=== PATIENT | male | born 1950 | race African-American/Black ===

== ENCOUNTER 2017-02-19 12:04 | Emergency (ER) | payer MEDICAID, MEDICARE, OTHER ==
[~2017-02-19] VITALS: Ht 182.9 cm; Wt 93.4 kg
[~2017-02-19 12:04] MED LIST: ADVAIR 250-501 EACH; ASPIRIN EC81 MG PO; ATORVASTATIN CA40 MG ORAL; AZITHROMYCIN250 MG ORAL; CARISOPRODOL350 MG ORAL; ENALAPRIL MALEA10 MG ORAL; GABAPENTIN300 MG ORAL; GLUCOTROL5 MG ORAL; HYDROCODON-ACE1 EA13 ORAL; IBUPROFEN600 MG ORAL; KENALOG 0.1% CR15 GM; LIPITOR80 MG ORAL; METFORMIN HCL500 M1 ORAL; MONTELUKAST SOD10 MG ORAL; NASONEX17 GM NASAL; OMEPRAZOLE20 M2; PROAIR HFA8.5 GM INH; TRAMADOL HCL50 MG ORAL; VENTOLIN HFA18 GM INH
[2017-02-19 12:19] VITALS: BP 120/73
[2017-02-19] MEDS ORDERED: ANUSOL-HC25 MG RECTAL (12:33)
[2017-02-19] MEDS ORDERED: COLACE100 MG ORAL (12:33)
--- NOTE | 2017-02-20 07:07 | Emergency Room Report ---
History of Present Illness General Chief Complaint: Pain Source: Patient Present Illness HPI 67-year-old male presenting with rectal pain for one month. Patient states he had a colonoscopy about a month ago, was told that he had some polyps that were removed. Patient states that he had some bleeding right after the colonoscopy but stopped after a few days. Now complaining of burning rectal pain, worse with defecation, comes and goes. Denies any fever or chills. Denies any swelling. Denies any diarrhea. Complains also of constant constipation, with very hard stool Allergies: Coded Allergies: HALOPERIDOL (Verified Allergy, Severe, Shortness of Breath, 03/18/14) THIORIDAZINE (Verified Allergy, Severe, Shortness of Breath, 03/18/14) Patient History Past Medical History: see triage record Past Surgical History: none Pertinent Family History: none Reviewed Nursing Documentation: PMH: Agreed, PSxH: Agreed Nursing Documentation-PMH Past Medical History: No History, Except For Hx Cardiac Problems: Yes Hx Hypertension: Yes Hx Asthma: Yes Hx Diabetes: Yes Hx Cancer: No Hx Gastrointestinal Problems: No Hx Neurological Problems: No Review of Systems All Other Systems: negative except mentioned in HPI Physical Exam Vital Signs Date Time Temp Pulse Resp B/P (MAP) Pulse Ox O2 Delivery O2 Flow Rate FiO2 02/19/17 12:09 98.2 90 20 120/73 97 Room Air Sp02 EP Interpretation: reviewed, normal General Appearance: normal inspection, well appearing, no apparent distress, alert, GCS 15, non-toxic Head: normocephalic, atraumatic Eyes: bilateral eye normal inspection, bilateral eye PERRL, bilateral eye EOMI ENT: normal ENT inspection, normal pharynx, normal voice, moist mucus membranes Neck: normal inspection, full range of motion, supple Respiratory: normal inspection, lungs clear, normal breath sounds, no respiratory distress, no retraction, no wheezing, speaking full sentences, chest symmetrical Cardiovascular #1: normal inspection, regular rate, rhythm, no edema, normal capillary refill Cardiovascular #2: 2+ radial (R), 2+ radial (L) Gastrointestinal: normal inspection, non tender, soft, non-distended, no guarding Rectal: other - No anal fissures, no rectal abscess use, no external hemorrhoids, tender to palpation in the rectum, possible palpation of the internal hemorrhoids, tender to palpation, no blood Genitourinary: no CVA tenderness Musculoskeletal: normal inspection, back normal, normal range of motion, non- tender Neurologic: normal inspection, alert, oriented x3, responsive, motor strength/ tone normal, sensory intact, normal gait, speech normal Psychiatric: normal inspection, judgement/insight normal, memory normal Skin: normal inspection, normal color, no rash, warm/dry, well hydrated, normal turgor Medical Decision Making Diagnostic Impression: Primary Impression: Hemorrhoids Additional Impression: Rectal or anal pain ER Course 67-year-old male with rectal pain for one month DDX: Per physical exam not likely to be an abscess, anal tear or fissure, likely to be an internal hemorrhoids Plan: No intervention in the emergency room ER course: Patient has remained stable during ED stay. Disposition: Patient is to be discharged to home. Prescriptions given are Colace, Anusol Patient is instructed to follow up with their primary care doctor within 5 days. Patient is instructed to follow up with gastroenterology in one week Strict return precautions discussed with patient such as fever, chills, worsening/severe pain, black or bloody stools Please note that this Emergency Department Report was dictated using [employer] estate photographer technology software, occasionally this can lead to erroneous entry secondary to interpretation by the dictation equipment Last Vital Signs Date Time Temp Pulse Resp B/P (MAP) Pulse Ox O2 Delivery O2 Flow Rate FiO2 02/19/17 12:45 98.2 90 20 120/73 97 Room Air Disposition: HOME, SELF-CARE Condition: Stable Scripts Docusate Sodium* (COLACE*) 100 Mg Capsule 100 MG ORAL THREE TIMES A DAY for 7 Days, #21 CAP 0 Refills Prov: Chapis Moreno M.D. 02/19/17 Hydrocortisone Acetate* (ANUSOL-HC*) 25 Mg Supp.rect 1 SUPP RECTAL TWICE A DAY for 5 Days, #10 SUPP 0 Refills Prov: Chapis Moreno M.D. 02/19/17 Referrals: NOT CHOSEN IPA/,REFERRING (PCP) Patient Instructions: Hemorrhoids, [id number] Additional Instructions: Please followup with your lithopress operator in one week without fail Chapis Moreno M.D. Feb 20, 2017 07:07
== END 2017-02-19 12:52 | disposition home or self-care (01) ==
LOC: EMR 12:33
DX: K64.9 Unspecified hemorrhoids (principal); K62.89 Other specified diseases of anus and rectum; Z88.5 Allergy status to narcotic agent; Z86.79 Personal history of other diseases of the circulatory system; I10 Essential (primary) hypertension; J45.909 Unspecified asthma, uncomplicated; E11.9 Type 2 diabetes mellitus without complications
CPT/HCPCS: 99283

== ENCOUNTER 2018-06-24 10:57 | Emergency (ER) | payer MEDICARE, OTHER ==
[~2018-06-24] VITALS: Ht 177.8 cm; Wt 90.7 kg
[~2018-06-24 10:57] MED LIST changes: +ANUSOL-HC25 MG RECTAL; +COLACE100 MG ORAL; +LIDOCAINE700 M1 TP; +ROBAXIN500 MG PO
--- NOTE | 2018-06-24 11:10 | NUR ---
ED Nurse Note: Patient walked into ED for pre-op blood work and ekg patient reports surgery scheduled on 06/30/18 at other hospital and his PCP office is closed, for MD on a vacation.
--- NOTE | 2018-06-24 12:26 | NUR ---
ED Nurse Note: blood sent down
[2018-06-24 12:34] LABS: BASOPHILS % (AUTO) 1.5 % (0.0-2.0); EOSINOPHILS % (AUTO) 1.8 % (0.0-3.0); HEMATOCRIT 48.1 % (42.0-52.0); HEMOGLOBIN 14.7 G/DL (14.2-18.0); LYMPHOCYTES % (AUTO) 30.3 % (20.0-45.0); MEAN CORPUSCULAR VOLUME 85 FL (80-99); NEUTROPHILS % (AUTO) 61.4 % (45.0-75.0); PLATELET COUNT 243 K/UL (150-450); RED BLOOD COUNT 5.65 M/UL (4.70-6.10); RED CELL DISTRIBUTION WIDTH 19.5 % (11.6-14.8); WHITE BLOOD COUNT 7.1 K/UL (4.8-10.8)
[2018-06-24 12:41] VITALS: BP 143/83
--- NOTE | 2018-06-24 12:43 | NUR ---
ED Nurse Note: patient is waiting for the result. sandwich/water provided.
[2018-06-24 12:49] LABS: ANION GAP 10 mmol/L (5-15); BLOOD UREA NITROGEN 8 mg/dL (7-18); CALCIUM 10.6 MG/DL (8.5-10.1); CARBON DIOXIDE 27 MMOL/L (21-32); CHLORIDE 95 MMOL/L (98-107); POTASSIUM 4.4 MMOL/L (3.5-5.1); SODIUM 132 MMOL/L (136-145)
[2018-06-24 12:54] LABS: ALANINE AMINOTRANSFERASE 46 U/L (12-78); ALBUMIN 4.8 G/DL (3.4-5.0); ALKALINE PHOSPHATASE 214 U/L (46-116); ASPARTATE AMINO TRANSFERASE 23 U/L (15-37); BILIRUBIN,TOTAL 0.5 MG/DL (0.2-1.0)
[2018-06-24 12:57] VITALS: BP 143/83
--- NOTE | 2018-06-24 12:58 | NUR ---
ED Nurse Note: patient is cleared to be discharged by ERMD ID band removed. A/O x4, ambulatory steady gait discharge instruction/paper given to patient patient verbalized understanding, ambulated out of ED with steady gait with all belongings.
--- NOTE | 2018-06-24 13:25 | Emergency Room Report ---
History of Present Illness General Chief Complaint: General Complaint Source: Medical Record Present Illness HPI Patient is a 68-year-old male presented for laboratory testing. Patient had recently been diagnosed with some form of a lung mass. He was advised that he would need surgery and needed some laboratory testing for preop clearance. Patient reportedly is diabetic and did not take his insulin this morning Januvia or metformin this morning he denies any fever. He reports having prior history of hemorrhoids. He denies any severe pain. He denies any shortness of breath at this time. Allergies: Coded Allergies: HALOPERIDOL (Verified Allergy, Severe, Shortness of Breath, 03/18/14) THIORIDAZINE (Verified Allergy, Severe, Shortness of Breath, 03/18/14) Patient History Past Medical History: see triage record Reviewed Nursing Documentation: PMH: Agreed; PSxH: Agreed Nursing Documentation-PMH Past Medical History: No History, Except For Hx Cardiac Problems: Yes Hx Hypertension: Yes Hx Asthma: Yes Hx Diabetes: Yes Hx Cancer: Yes - lung ca Hx Gastrointestinal Problems: No Hx Neurological Problems: No Review of Systems All Other Systems: negative except mentioned in HPI Physical Exam Vital Signs Date Time Temp Pulse Resp B/P (MAP) Pulse Ox O2 Delivery O2 Flow Rate FiO2 06/24/18 11:02 97.5 82 16 143/83 98 Room Air Sp02 EP Interpretation: reviewed, normal General Appearance: normal inspection, alert, non-toxic, Chronically Ill Head: atraumatic ENT: normal ENT inspection, hearing grossly normal, normal voice Neck: normal inspection, full range of motion, supple, no bony tend Respiratory: normal inspection, lungs clear, normal breath sounds, no respiratory distress, no retraction, no wheezing Cardiovascular #1: regular rate, rhythm, no edema Gastrointestinal: normal inspection, normal bowel sounds, non tender, soft, no guarding, no hernia Genitourinary: no CVA tenderness Musculoskeletal: normal inspection, back normal, normal range of motion Neurologic: normal inspection, alert, oriented x3, responsive, audit reviewer III-XII nml as tested, speech normal Psychiatric: normal inspection, judgement/insight normal, mood/affect normal Skin: normal inspection, normal color, no rash Medical Decision Making Diagnostic Impression: Primary Impression: Lung mass ER Course Patient presented for laboratory testing. Differential diagnosis includes is not limited to anemia, hyperglycemia among others. Because of complexity of patient's case laboratory testing and imaging studies were ordered. Patient was noted to have elevated blood sugar but did not take his medication this morning. Patient was advised to resume his medications. EKG interpreted by me showed normal sinus rhythm with left ventricular hypertrophy and nonspecific ST changes. Patient was advised to follow-up with his surgeon. He was given copies of his labs. Patient was advised to return if he any worsening of condition. Last Vital Signs Date Time Temp Pulse Resp B/P (MAP) Pulse Ox O2 Delivery O2 Flow Rate FiO2 06/24/18 12:57 97.5 16 143/83 98 Room Air 06/24/18 12:41 82 Status: improved Disposition: HOME, SELF-CARE Condition: Stable Patient Instructions: Pulmonary Nodule Vaughn Liu MD Jun 24, 2018 13:25
--- NOTE | 2018-06-27 16:21 | Cardiology Report ---
APPROVED REPORT EKG Measurement Heart [id number] Normal sinus rhythm Normal ECG
== END 2018-06-24 12:59 | disposition home or self-care (01) ==
LOC: EMR 11:50
DX: R91.8 Other nonspecific abnormal finding of lung field (principal); J45.909 Unspecified asthma, uncomplicated; I10 Essential (primary) hypertension; Z88.8 Allergy status to other drugs, medicaments and biological substances; Z85.118 Personal history of other malignant neoplasm of bronchus and lung
CPT/HCPCS: 36415; 80053; 85025; 85610; 85730; 93005; 99283

== ENCOUNTER 2018-10-18 10:18 | Emergency (ER) | payer MEDICARE, OTHER ==
[~2018-10-18] VITALS: Ht 182.9 cm; Wt 2.7 kg
--- NOTE | 2018-10-18 10:40 | NUR ---
ED Nurse Note: pt walked in to ER c/o abdominal pain 8/10 and N/V for 5 days. pt finished chemo therapy for lung cx a couple of weeks ago. pt aao x4 and ambulatory. skin clean and intact. not vomiting at this moment.
[2018-10-18 10:41] VITALS: BP 178/89
--- NOTE | 2018-10-18 10:54 | Emergency Room Report ---
History of Present Illness General Chief Complaint: Abdominal Pain Source: Patient Present Illness HPI Patient reports 3 days of abdominal bloating and cramps. He also has back pain. He just finished chemotherapy for lung cancer a week and a half ago. He' s been taking [place] for back pain. He's been constipated in the past but not this severe. He denies passing blood in his stool. He's been unable to pass stool. Denies any dysuria. He states that the cancer has not spread to his bones. He is treated for hypertension and is been able to take that medication. He's been taking stool softener but there and pill form and they haven't been helping. He is passing gas. He's never had abdominal surgery in the past. The patient does cough up some phlegm. His there is no sputum with color or blood. He denies any chest pain at this time. Allergies: Coded Allergies: HALOPERIDOL (Verified Allergy, Severe, Shortness of Breath, 03/18/14) THIORIDAZINE (Verified Allergy, Severe, Shortness of Breath, 03/18/14) Patient History Past Medical History: see triage record Past Surgical History: other - Left lung tumor resection Social History: Denies: smoking - Prior Social History Narrative friend drove him here Reviewed Nursing Documentation: PMH: Agreed; PSxH: Agreed Nursing Documentation-PMH Past Medical History: No History, Except For Hx Cardiac Problems: Yes Hx Hypertension: Yes Hx Asthma: Yes Hx Diabetes: Yes Hx Cancer: Yes - lung ca Hx Gastrointestinal Problems: No Hx Neurological Problems: No Review of Systems All Other Systems: negative except mentioned in HPI Physical Exam Vital Signs Date Time Temp Pulse Resp B/P (MAP) Pulse Ox O2 Delivery O2 Flow Rate FiO2 10/18/18 10:22 97.9 95 17 162/89 (113) 97 Room Air Sp02 EP Interpretation: reviewed, normal General Appearance: well appearing, no apparent distress, GCS 15 Head: normocephalic, atraumatic Eyes: bilateral eye normal inspection, bilateral eye PERRL, bilateral eye EOMI ENT: moist mucus membranes Neck: supple Respiratory: lungs clear, normal breath sounds Cardiovascular #1: regular rate, rhythm Cardiovascular #2: 2+ radial (R) Gastrointestinal: normal inspection, normal bowel sounds, non tender, no mass, non-distended Musculoskeletal: back normal, gait/station normal, normal range of motion Neurologic: alert, oriented x3, grossly normal Psychiatric: mood/affect normal Skin: normal inspection, warm/dry Medical Decision Making Diagnostic Impression: Primary Impression: Renal failure Qualified Codes: N17.9 - Acute kidney failure, unspecified Additional Impressions: Neutropenia Qualified Codes: D70.1 - Agranulocytosis secondary to cancer chemotherapy; T45.1X5A - Adverse effect of antineoplastic and immunosuppressive drugs, initial encounter Anemia Qualified Codes: D64.9 - Anemia, unspecified ER Course Patient presents with abdominal pain and bloating without moving his bowels for 3 days. I differential includes ascites, diverticulitis, constipation, impaction, dehydration, urinary tract infection, bony metastasis amongst others. Evaluation will be with EKG, chest x-ray, abdominal film and labs. The patient will receive IV hydration, Toradol, lactulose and an enema. Labs with low WBC. Renal failure. No IV access. Cancel Toradol as pain controlled with tylenol.. Moved bowels with enema. Improved pain. Kayexelate given. Presented to Dr. Meza who accepts at [facility]. Laboratory Tests Test 10/18/18 11:06 White Blood Count 1.3 K/UL (4.8-10.8) *L Red Blood Count 2.31 M/UL (4.70-6.10) L Hemoglobin 7.6 G/DL (14.2-18.0) L Hematocrit 22.1 % (42.0-52.0) L Mean Corpuscular Volume 96 FL (80-99) Mean Corpuscular Hemoglobin 32.7 PG (27.0-31.0) H Mean Corpuscular Hemoglobin Concent 34.3 G/DL (32.0-36.0) Red Cell Distribution Width 14.1 % (11.6-14.8) Platelet Count 122 K/UL (150-450) L Mean Platelet Volume 6.3 FL (6.5-10.1) L Neutrophils (%) (Auto) % (45.0-75.0) Lymphocytes (%) (Auto) % (20.0-45.0) Monocytes (%) (Auto) % (1.0-10.0) Eosinophils (%) (Auto) % (0.0-3.0) Basophils (%) (Auto) % (0.0-2.0) Differential Total Cells Counted 100 Neutrophils % (Manual) 44 % (45-75) L Lymphocytes % (Manual) 37 % (20-45) Monocytes % (Manual) 15 % (1-10) H Eosinophils % (Manual) 4 % (0-3) H Basophils % (Manual) 0 % (0-2) Band Neutrophils 0 % (0-8) Platelet Estimate Decreased L Platelet Morphology Normal Hypochromasia 1+ Anisocytosis 1+ Prothrombin Time 10.1 SEC (9.30-11.50) Prothrombin Time INR 0.9 (0.9-1.1) PTT 22 SEC (23-33) L Urine Color Yellow Urine Appearance Clear Urine pH 6 (4.5-8.0) Urine Specific [place] 1.015 (1.005-1.035) Urine Protein 2+ (NEGATIVE) H Urine Glucose (UA) 2+ (NEGATIVE) H Urine Ketones Negative (NEGATIVE) Urine Blood Negative (NEGATIVE) Urine Nitrite Negative (NEGATIVE) Urine Bilirubin Negative (NEGATIVE) Urine Urobilinogen 1 MG/DL (0.0-1.0) H Urine Leukocyte Esterase Negative (NEGATIVE) Urine RBC 0 /HPF (0 - 0) Urine WBC 0-2 /HPF (0 - 0) Urine Squamous Epithelial Cells Occasional /LPF Urine Bacteria Occasional /HPF (NONE) Sodium Level 133 MMOL/L (136-145) L Potassium Level 5.3 MMOL/L (3.5-5.1) H Chloride Level 102 MMOL/L (98-107) Carbon Dioxide Level 24 MMOL/L (21-32) Anion Gap 7 mmol/L (5-15) Blood Urea Nitrogen 20 mg/dL (7-18) H Creatinine 2.4 MG/DL (0.55-1.30) H Estimate Glomerular Filtration Rate 33.0 mL/min (>60) Glucose Level 140 MG/DL (74-106) H Calcium Level 9.4 MG/DL (8.5-10.1) Total Bilirubin 0.3 MG/DL (0.2-1.0) Aspartate Amino Transferase (AST) 19 U/L (15-37) Alanine Aminotransferase (ALT) 17 U/L (12-78) Alkaline Phosphatase 150 U/L (46-116) H Total Creatine Kinase 166 U/L (26-308) Troponin I 0.007 ng/mL (0.000-0.056) Total Protein 7.7 G/DL (6.4-8.2) Albumin 3.5 G/DL (3.4-5.0) Globulin 4.2 g/dL Albumin/Globulin Ratio 0.8 (1.0-2.7) L Lipase 105 U/L (73-393) EKG Diagnostic Results Rate: normal Rhythm: NSR ST Segments: other - peaked T waves Rhythm Strip Diag. Results EP Interpretation: yes Rhythm: NSR, no PVC's, no ectopy Chest X-Ray Diagnostic Results Chest X-Ray Diagnostic Results : Chest X-Ray Ordered: Yes # of Views/Limited/Complete: 1 View Indication: Other EP Interpretation: Yes Interpretation: no pneumothorax, other - Effusion/post surgical changes R - cannot exclude infiltrate Impression: Other Electronically Signed by: Electronically signed by Valente Jordan MD Other X-Ray Diagnostic Results Other X-Ray Diagnostic Results : X-Ray ordered: abd # of Views/Limited Vs Complete: 2 View Indication: Other EP Interpretation: Yes Interpretation: nonspecific bowel gas, no sbo, other - no masses Impression: Other Electronically Signed by: Electronically signed by Valente Jordan MD Last Vital Signs Date Time Temp Pulse Resp B/P (MAP) Pulse Ox O2 Delivery O2 Flow Rate FiO2 10/18/18 14:51 98.0 88 17 152/84 100 Room Air Status: improved Disposition: XFER SHT-TRM HOSP Condition: Serious Valente Jordan MD Oct 18, 2018 10:54
[2018-10-18] MEDS ORDERED: Acetaminophen 500mg (ES) tab ORAL ONE (11:00)
[2018-10-18] MEDS ORDERED: Fleet's Mineral Oil Enema RECTAL ONE (11:00)
[2018-10-18] MEDS ORDERED: Ketorolac 30mg Inj IV ONE (11:00)
[2018-10-18] MEDS ORDERED: Lactulose 20gm/30ml UDC ORAL ONE (11:00)
[2018-10-18 11:38] LABS: HEMATOCRIT 22.1 % (42.0-52.0); HEMOGLOBIN 7.6 G/DL (14.2-18.0); MEAN CORPUSCULAR VOLUME 96 FL (80-99); PLATELET COUNT 122 K/UL (150-450); RED BLOOD COUNT 2.31 M/UL (4.70-6.10); RED CELL DISTRIBUTION WIDTH 14.1 % (11.6-14.8); WHITE BLOOD COUNT 1.3 K/UL (4.8-10.8)
[2018-10-18 11:41] LABS: APPEARANCE,URINE CLEAR; BILIRUBIN, URINE NEGATIVE (NEGATIVE); GLUCOSE, URINE (UA) 2+ (NEGATIVE); KETONES,URINE NEGATIVE (NEGATIVE); LEUKOCYTE ESTERASE ,URINE NEGATIVE (NEGATIVE); NITRITE,URINE NEGATIVE (NEGATIVE); PH,URINE 6 (4.5-8.0); PROTEIN,URINE 2+ (NEGATIVE); UROBILINOGEN,URINE 1 MG/DL (0.0-1.0)
[2018-10-18 11:45] LABS: INR 0.9 (0.9-1.1)
[2018-10-18 11:46] LABS: ANION GAP 7 mmol/L (5-15); BLOOD UREA NITROGEN 20 mg/dL (7-18); CALCIUM 9.4 MG/DL (8.5-10.1); CARBON DIOXIDE 24 MMOL/L (21-32); CHLORIDE 102 MMOL/L (98-107); CREATININE 2.4 MG/DL (0.55-1.30); POTASSIUM 5.3 MMOL/L (3.5-5.1); SODIUM 133 MMOL/L (136-145)
[2018-10-18 11:50] LABS: ALANINE AMINOTRANSFERASE 17 U/L (12-78); ALBUMIN 3.5 G/DL (3.4-5.0); ALBUMIN/GLOBULIN RATIO 0.8 (1.0-2.7); ALKALINE PHOSPHATASE 150 U/L (46-116); ASPARTATE AMINO TRANSFERASE 19 U/L (15-37); BILIRUBIN,TOTAL 0.3 MG/DL (0.2-1.0); CREATINE KINASE 166 U/L (26-308)
[2018-10-18 11:54] LABS: COLOR,URINE YELLOW
--- NOTE | 2018-10-18 12:08 | NUR ---
Per dr lamb patient doesnot need an iv . patient can be admitted without iv .
--- NOTE | 2018-10-18 12:10 | NUR ---
ED Nurse Note: pt had 1x BM in bathroom. per pt, it was medium size.
--- NOTE | 2018-10-18 12:18 | Diagnostic Imaging Report ---
EXAM: XR Abdomen, 2 Views CLINICAL HISTORY: ABD PAIN TECHNIQUE: Frontal supine views of the abdomen/pelvis. COMPARISON: CT abdomen and pelvis dated 06/29/15 FINDINGS: Intraperitoneal space: No visible free air below the diaphragm. Gastrointestinal tract: Moderate gaseous distention of small bowel and colonic loops, nonspecific. No evidence of pneumatosis intestinalis. Organs: The renal shadows appear unremarkable. No evidence of organomegaly. No abnormal calcifications in the abdomen or pelvis. Bones/joints: Unremarkable. IMPRESSION: Moderate gaseous distention of small bowel and colonic loops, nonspecific.
--- NOTE | 2018-10-18 12:19 | Diagnostic Imaging Report ---
EXAM: XR Chest, 1 View CLINICAL HISTORY: ABD PAIN TECHNIQUE: Frontal view of the chest. COMPARISON: Chest x-ray dated 03/18/14 FINDINGS: Lungs: Unremarkable. The lungs appear clear. No focal consolidation. Pleural space: Unremarkable. The costophrenic angles are sharp. No visible pneumothorax. Heart: Unremarkable. No cardiomegaly. Mediastinum: Unremarkable. Bones/joints: Unremarkable. Tubes, lines and devices: Telemetry leads overlie the thorax. Upper abdomen: Mild elevation of the right hemidiaphragm. IMPRESSION: Mild elevation of the right hemidiaphragm.
[2018-10-18 12:40] VITALS: BP 162/82
--- NOTE | 2018-10-18 13:37 | NUR ---
report given to sean quinones supervisor roving department . patient will be transferd to [facility] for observation
[2018-10-18] MEDS ORDERED: Sodium Polystyrene Sulfonate 15gm Powder ORAL ONE (13:45)
[2018-10-18] MEDS ORDERED: Albuterol ud Inhalation HHN ONE (14:15)
[2018-10-18] MEDS ORDERED: Ipratropium 0.02% Inh Soln 2.5ml UD HHN ONE (14:15)
--- NOTE | 2018-10-18 14:44 | NUR ---
ED Nurse Note: transportation arrived. pt stable to be transferred.
--- NOTE | 2018-10-18 14:48 | NUR ---
ED Nurse Note: called for a report. call was transferred and nurse did not answer.
--- NOTE | 2018-10-18 14:50 | NUR ---
ED Nurse Note: Report given by CN. Romy
[2018-10-18 14:51] VITALS: BP 152/68
--- NOTE | 2018-10-18 14:52 | NUR ---
ED Nurse Note: pt left with EMS in stable condition.
--- NOTE | 2018-10-21 21:12 | Cardiology Report ---
APPROVED REPORT EKG Measurement Heart [id number] ME [id number] Normal sinus rhythm Normal ECG
== END 2018-10-18 14:51 | disposition short-term general hospital (02) ==
LOC: EMR 12:39
DX: N17.9 Acute kidney failure, unspecified (principal); D70.1 Agranulocytosis secondary to cancer chemotherapy; T45.1X5A Adverse effect of antineoplastic and immunosuppressive drugs, initial encounter; D64.9 Anemia, unspecified; Z85.118 Personal history of other malignant neoplasm of bronchus and lung; Z88.8 Allergy status to other drugs, medicaments and biological substances; I10 Essential (primary) hypertension; E11.9 Type 2 diabetes mellitus without complications
CPT/HCPCS: 36415; 71045; 74018; 80053; 81003; 82550; 83690; 84484; 85007; 85025; 85610; 85730; 93005; 96360; 99285; J1885

== ENCOUNTER 2019-03-20 03:07 | Emergency (ER) | payer MEDICARE, OTHER ==
[~2019-03-20] VITALS: Ht 183.5 cm; Wt 89.4 kg
--- NOTE | 2019-03-20 03:21 | NUR ---
ED Nurse Note: pt walked in to ED C/O bilateral knee pain. pt is unable to sleep due to pain for the last 2 days. pt is alert x4.
[2019-03-20] MEDS ORDERED: HYDROcodone/Acetamin 7.5/325 tab ORAL ONE (03:30)
[2019-03-20] MEDS ORDERED: NORCO 5-325 TA1 EACH ORAL (03:31)
--- NOTE | 2019-03-20 03:39 | Emergency Room Report ---
History of Present Illness General Chief Complaint: Lower Extremity Injury Source: Patient Present Illness HPI Disclaimer: Please note that this report is being documented using [employer] technology. This can lead to erroneous entry secondary to incorrect interpretation by the dictating instrument. HPI: This is a 69-year-old male with history of osteoarthritis, chronic knee pain presented for evaluation of bilateral knee pain. No new injury reported. The patient states that he is prescribed hydrocodone regularly by his pain clinic which he sees the or of each month. He ran out of medication early this month because of the cold weather causing increased soreness and throbbing in his knees causing her to take some extra tablets over the past month. He is 2 days away from his next pain medication appointment. Denies any new fall, injury or trauma to the knees. Notes aching in the knees bilaterally which is consistent with his chronic pain. He has a right knee replacement but denies any recent effusion, swelling, redness or other changes in his health. Patient does have a history of lung cancer but is no longer receiving chemotherapy. Otherwise in his usual state of health requesting a short bridging prescription until he can see pain clinic on Friday. PMH: Lung cancer, hypertension, osteoarthritis, chronic knee and back pain PSH: Right knee replacement, tumor resection Allergies: Haldol, thioridazine Social Hx: Regular smoking, denies alcohol or drug abuse Allergies: Coded Allergies: HALOPERIDOL (Verified Allergy, Severe, Shortness of Breath, 03/18/14) THIORIDAZINE (Verified Allergy, Severe, Shortness of Breath, 03/18/14) Nursing Documentation-PMH Hx Cardiac Problems: Yes Hx Hypertension: Yes Hx Asthma: Yes Hx Diabetes: Yes Hx Cancer: Yes - right lung Hx Gastrointestinal Problems: No Hx Neurological Problems: No Review of Systems All Other Systems: negative except mentioned in HPI Physical Exam Vital Signs Date Time Temp Pulse Resp B/P (MAP) Pulse Ox O2 Delivery O2 Flow Rate FiO2 03/20/19 03:17 97.9 80 18 166/92 (116) 98 Room Air General: Awake and alert, no acute distress HEENT: NC/AT. EOMI. Resp: Normal work of breathing Skin: Intact. No abrasions, laceration or rash over the exposed skin. Surgical wound over the right knee is clean, dry intact and well-healed MSK: Normal tone and bulk. Moving all extremities. No obvious deformity. No deformity over the patellas and no joint instability on varus, valgus testing or Gabriel sign. Distal pulses are 2+, capillary refill in the toes is less than 2 seconds. Limbs are warm. Calves are symmetrical without swelling or tenderness. No effusion, no overlying erythema, knees are not warm to the touch. Full range of motion at the hips, knees and ankles. Neuro: Awake and alert. Mentating appropriately. Sensation is intact over the dermatomes of lower extremity's bilaterally. Medical Decision Making Diagnostic Impression: Primary Impression: Knee pain Additional Impression: Medication refill ER Course 69-year-old male with history of chronic knee pain presents for evaluation of bilateral knee throbbing without new injury and requesting a bridging prescription until he can see pain clinic in 2 days. No trauma reported I do not believe the patient requires emergent labs or imaging at this time based on reassuring physical examination and patient's history. Review of the patient's cures report shows that he regularly gets a refill of his medication around the 10th of each month which he is on scheduled to have. He states he had to take extra tablets over the past month given the cold nights causing increased pain. He was unable to sleep tonight and presented to the emergency department. We will treat him with Toradol in the emergency department and write him a short prescription to get him through until he can see pain clinic early this week. I discussed with him that it is important that he takes medications only as prescribed and even though he has an discomfort cannot take extra dose of his pain medications and that the emergency department is not an appropriate place to have chronic pain medications refilled. Patient understands and agrees to this treatment plan will be discharged home with outpatient follow-up. Last Vital Signs Date Time Temp Pulse Resp B/P (MAP) Pulse Ox O2 Delivery O2 Flow Rate FiO2 03/20/19 03:17 97.9 80 18 166/92 (116) 98 Room Air Disposition: HOME, SELF-CARE Condition: Stable Scripts Hydrocodone Bit/Acetaminophen 5-325* (NORCO 5-325*) 1 Each Tablet 1 TAB ORAL Q6H PRN for For Pain, #10 TAB 0 Refills Prov: Luis San MD 03/20/19 Referrals: Arabella Esposito [facility] Patient Instructions: Knee Pain Additional Instructions: Your evaluated today in the emergency department for knee pain and medication refill. We have prescribed a short course of your pain medication until you can see your pain clinic on Friday. Please follow-up with them with any further prescriptions. Return to the emergency department any new injuries or any other changes in your health. Follow-up with your primary doctor as well to discuss today's emergency department visit. Take medication only as prescribed. Luis San MD Mar 20, 2019 03:39
[2019-03-20 03:45] VITALS: BP 148/88
[2019-03-20] MEDS ORDERED: Ketorolac 30mg Inj IM ONE (03:45)
--- NOTE | 2019-03-20 03:45 | NUR ---
ER DISCHARGE NOTE: Patient is cleared to be discharged per ERMD, pt is aox4, on room air, with stable vital signs. pt was given dc instructions, pt was able to verbalize understanding, pt id band removed without complications. pt is able to ambulate with steady gait. pt took all belongings.
--- NOTE | 2019-03-20 03:48 | NUR ---
Note juliette in EDM - 03/20/19 at 0349 by MATHEW ED Nurse Note: pt walked in to ED C/O bilateral knee pain. pt is unable to sleep due to pain for the last 2 days. pt is alert x4.
== END 2019-03-20 03:41 | disposition home or self-care (01) ==
LOC: EMR 03:35
DX: M25.562 Pain in left knee (principal); M25.561 Pain in right knee; I10 Essential (primary) hypertension; M19.90 Unspecified osteoarthritis, unspecified site; Z85.118 Personal history of other malignant neoplasm of bronchus and lung; Z96.651 Presence of right artificial knee joint; Z88.8 Allergy status to other drugs, medicaments and biological substances; F17.200 Nicotine dependence, unspecified, uncomplicated; E11.9 Type 2 diabetes mellitus without complications; Z76.0 Encounter for issue of repeat prescription
CPT/HCPCS: 96372; 99283; J1885